=== PATIENT | female | born 1965 | race Caucasian/White ===

== ENCOUNTER 2017-04-03 10:08 | Inpatient (IN) | payer MEDICAID ==
[~2017-04-03] VITALS: Ht 154.9 cm; Wt 80.0 kg
[2017-04-03] MEDS ORDERED: SODIUM CHLORIDE 0.9% 500 ML IVB ONE (10:21)
[2017-04-03] MEDS ORDERED: MORPHINE SULFATE 4 MG/ML SYRG IV ONE (10:30)
[2017-04-03] MEDS ORDERED: ONDANSETRON HCL 4 MG/2 ML VIAL IV ONE (10:30)
[2017-04-03 11:24] LABS: Basophils # (auto) 0 uL; Basophils % (auto) 0.2 % (0.0-2.0); CONDITION Y; Eosinophils # (auto) 0 uL; Eosinophils % (auto) 0.4 % (0.0-7.0); Hematocrit 43.7 % (36.0-46.0); Hemoglobin 14.9 g/dL (12.2-16.2); Lymphocytes # (auto) 0.9 uL; Lymphocytes % (auto) 13.1 % (10.0-50.0); Mean Corpuscular Hemoglobin 29.6 pg (28.0-32.0); Mean Corpuscular Volume 87.3 fL (80.0-100.0); Mean Platelet Volume 8.1 fL (7.4-10.4); Monocytes # (auto) 0.2 uL; Monocytes % (auto) 3.2 % (0.0-12.0); Neutrophils # (auto) 5.9 uL; Neutrophils % (auto) 83.1 % (37.0-80.0); Platelet Count (auto) 233 10^3/uL (140-450); Red Cell Distribution Width 13.9 % (11.6-16.0); White Blood Cell 7.1 10^3/uL (4.4-10.8)
[2017-04-03 11:41] LABS: Albumin 3.8 g/dL (3.4-5.0); BUN/Creatinine Ratio 18.9; Bilirubin, Total 2.6 mg/dL (0.2-1.0); Calcium 11.1 mg/dL (8.5-10.1); Potassium 3.8 mmol/L (3.5-5.1); Total Protein 7.7 g/dL (6.4-8.2)
[2017-04-03] MEDS ORDERED: MORPHINE SULFATE 4 MG/ML SYRG IV PRN (12:15)
[2017-04-03] MEDS ORDERED: NITROGLYCERIN 0.4 MG SL TAB SL PRN (12:15)
[2017-04-03] MEDS ORDERED: LORazepam 2MG/ML-1ML VIAL IV PRN (12:15)
[2017-04-03] MEDS ORDERED: MORPHINE SULF INJ 2 MG/ML SYRINGE 1ML IV PRN ×2 (12:15)
[2017-04-03] MEDS ORDERED: DEXTROSE (50%) 50ML SYRG IV PRN (12:15)
[2017-04-03 12:30] LABS: Urine Blood Negative /uL (Negative); Urine Color Yellow (Yellow); Urine Glucose Normal (Normal); Urine Ketone Negative (Negative); Urine Nitrite Negative (Negative); Urine RBC 1 /hpf (0 - 4); Urine Squamous Epithelial Cell FEW /hpf (<5)
[2017-04-03 12:33] LABS: Urine Bilirubin Negative (Negative)
[2017-04-03] MEDS: LEVOFLOXACIN 500MG 100 ML IV SCH (13:07)
[2017-04-03] MEDS: SODIUM CHLORIDE 0.9% 1,000 ML IV SCH ×2 (13:07→18:53)
[2017-04-03] MEDS: metroNIDAZOLE 500MG/100ML 100 ML IV SCH ×2 (14:58→21:23)
[2017-04-03] MEDS: PROMETHAZINE HCL 25 MG/ML 1ML IV PRN (17:56)
[2017-04-03] MEDS: ACCU-CHEK COMFORT CURVE STRIP VI SCH (19:02)
[2017-04-03 20:30] VITALS: BP 137/62
[2017-04-03] MEDS: FAMOTIDINE (10MG/ML) 2ML VL IV SCH (21:24)
[2017-04-03 22:00] VITALS: BP 137/62
[2017-04-04] MEDS: PROMETHAZINE HCL 25 MG/ML 1ML IV PRN (00:49)
[2017-04-04] MEDS ORDERED: DOCU-94 PO (01:09)
[2017-04-04 05:00] VITALS: BP 141/78
[2017-04-04] MEDS: SODIUM CHLORIDE 0.9% 1,000 ML IV SCH ×3 (05:50→15:12)
[2017-04-04] MEDS: ACCU-CHEK COMFORT CURVE STRIP VI SCH ×4 (05:52→18:00)
[2017-04-04] MEDS: metroNIDAZOLE 500MG/100ML 100 ML IV SCH ×3 (05:52→21:23)
[2017-04-04 06:24] LABS: Basophils # (auto) 0 uL; Basophils % (auto) 0.3 % (0.0-2.0); CONDITION Y; Eosinophils # (auto) 0 uL; Eosinophils % (auto) 0.7 % (0.0-7.0); Hemoglobin 13.4 g/dL (12.2-16.2); Lymphocytes # (auto) 0.9 uL; Lymphocytes % (auto) 13.2 % (10.0-50.0); Mean Corpuscular Hemoglobin 29.5 pg (28.0-32.0); Mean Corpuscular Hgb Conc. 33.5 g/dL (32.0-36.0); Mean Corpuscular Volume 88.2 fL (80.0-100.0); Mean Platelet Volume 8.2 fL (7.4-10.4); Monocytes # (auto) 0.3 uL; Monocytes % (auto) 4.4 % (0.0-12.0); Neutrophils # (auto) 5.4 uL; Neutrophils % (auto) 81.4 % (37.0-80.0); Platelet Count (auto) 208 10^3/uL (140-450); Red Cell Distribution Width 14.1 % (11.6-16.0); White Blood Cell 6.6 10^3/uL (4.4-10.8)
[2017-04-04 06:44] LABS: INR 1.04 (0.9-1.15); Partial Thromboplastin Time 26.4 sec (22.64-33.71); Prothrombin Time 11.3 sec (9.37-12.3)
[2017-04-04 07:01] LABS: Albumin 3.1 g/dL (3.4-5.0); BUN/Creatinine Ratio 17.6; Bilirubin, Total 1.3 mg/dL (0.2-1.0); Calcium 10.6 mg/dL (8.5-10.1); Potassium 3.5 mmol/L (3.5-5.1); Total Protein 6.4 g/dL (6.4-8.2)
[2017-04-04 09:00] VITALS: BP 150/79
[2017-04-04] MEDS: FAMOTIDINE (10MG/ML) 2ML VL IV SCH ×2 (10:23→21:23)
[2017-04-04] MEDS: LEVOFLOXACIN 500MG 100 ML IV SCH (10:23)
[2017-04-04 13:00] VITALS: BP 148/76
[2017-04-04] MEDS: HYDROcodone-ACET 5/325MG TAB PO PRN (14:15)
[2017-04-04 17:00] VITALS: BP 110/63
[2017-04-04 22:00] VITALS: BP 129/68
[2017-04-05] MEDS: ACCU-CHEK COMFORT CURVE STRIP VI SCH ×4 (00:03→17:52)
[2017-04-05] MEDS: HYDROcodone-ACET 5/325MG TAB PO PRN ×4 (02:44→20:13)
[2017-04-05] MEDS: SODIUM CHLORIDE 0.9% 1,000 ML IV SCH ×4 (02:47→15:28)
[2017-04-05 05:00] VITALS: BP 117/65
[2017-04-05] MEDS: metroNIDAZOLE 500MG/100ML 100 ML IV SCH ×2 (05:25→14:15)
[2017-04-05 06:39] LABS: Basophils # (auto) 0 uL; Basophils % (auto) 0.2 % (0.0-2.0); CONDITION Y; Eosinophils # (auto) 0.1 uL; Eosinophils % (auto) 1.2 % (0.0-7.0); Hematocrit 37.4 % (36.0-46.0); Hemoglobin 12.6 g/dL (12.2-16.2); Lymphocytes # (auto) 1.5 uL; Lymphocytes % (auto) 19.2 % (10.0-50.0); Mean Corpuscular Hemoglobin 29.8 pg (28.0-32.0); Mean Corpuscular Hgb Conc. 33.8 g/dL (32.0-36.0); Mean Corpuscular Volume 88.1 fL (80.0-100.0); Mean Platelet Volume 7.9 fL (7.4-10.4); Monocytes # (auto) 0.4 uL; Monocytes % (auto) 5.6 % (0.0-12.0); Neutrophils # (auto) 5.7 uL; Neutrophils % (auto) 73.8 % (37.0-80.0); Platelet Count (auto) 200 10^3/uL (140-450); Red Cell Distribution Width 13.5 % (11.6-16.0); White Blood Cell 7.7 10^3/uL (4.4-10.8)
[2017-04-05 07:05] LABS: Albumin 2.8 g/dL (3.4-5.0); BUN/Creatinine Ratio 15.9; Bilirubin, Total 0.9 mg/dL (0.2-1.0); Calcium 10.3 mg/dL (8.5-10.1); Potassium 3.4 mmol/L (3.5-5.1)
[2017-04-05 07:49] VITALS: BP 137/75
[2017-04-05] MEDS: LEVOFLOXACIN 500MG 100 ML IV SCH (09:08)
[2017-04-05] MEDS: FAMOTIDINE (10MG/ML) 2ML VL IV SCH ×2 (09:08→22:00)
[2017-04-05 12:00] VITALS: BP 119/64
[2017-04-05] MEDS ORDERED: POTASSIUM CHL 20MEQ/100ML 100 ML IV ONE (15:15)
[2017-04-05 16:52] VITALS: BP 126/71
[2017-04-05 20:00] VITALS: BP 129/68
[2017-04-05 21:38] VITALS: BP 129/68
[2017-04-06] MEDS: ACCU-CHEK COMFORT CURVE STRIP VI SCH ×5 (00:12→23:16)
[2017-04-06] MEDS: SODIUM CHLORIDE 0.9% 1,000 ML IV SCH ×4 (00:13→23:17)
[2017-04-06] MEDS: HYDROcodone-ACET 5/325MG TAB PO PRN ×4 (03:13→21:08)
[2017-04-06 05:02] VITALS: BP 108/63
[2017-04-06 06:29] LABS: Calcium 9.7 mg/dL (8.5-10.1); Potassium 3.7 mmol/L (3.5-5.1)
[2017-04-06 06:31] LABS: BUN/Creatinine Ratio 11.9
[2017-04-06] MEDS: FAMOTIDINE (10MG/ML) 2ML VL IV SCH ×2 (08:53→21:08)
[2017-04-06 09:00] VITALS: BP 128/70
[2017-04-06 13:00] VITALS: BP 125/69
[2017-04-06 17:00] VITALS: BP 118/68
[2017-04-06 21:35] VITALS: BP 108/70
[2017-04-07 04:41] VITALS: BP 106/53
[2017-04-07] MEDS: HYDROcodone-ACET 5/325MG TAB PO PRN ×4 (05:03→20:47)
[2017-04-07] MEDS: ACCU-CHEK COMFORT CURVE STRIP VI SCH ×4 (06:12→23:02)
[2017-04-07 06:47] LABS: Amylase 131 U/L (25-115)
[2017-04-07 08:08] VITALS: BP 134/60
[2017-04-07] MEDS: FAMOTIDINE (10MG/ML) 2ML VL IV SCH (11:40)
[2017-04-07 12:54] VITALS: BP 130/69
[2017-04-07 17:17] VITALS: BP 121/78
[2017-04-07 21:30] VITALS: BP 129/71
[2017-04-07] MEDS: SODIUM CHLORIDE 0.9% 1,000 ML IV SCH (22:24)
[2017-04-08] MEDS: SODIUM CHLORIDE 0.9% 1,000 ML IV SCH (04:14)
[2017-04-08 05:00] VITALS: BP 108/70
[2017-04-08] MEDS: ACCU-CHEK COMFORT CURVE STRIP VI SCH ×2 (06:00→12:00)
[2017-04-08 09:00] VITALS: BP 133/52
[2017-04-08] MEDS ORDERED: FAMOTIDINE 20 MG TAB PO SCH (10:00)
[2017-04-08] MEDS ORDERED: IBUP800T24 PO (11:33)
[2017-04-08] MEDS ORDERED: FAM20T PO (11:33)
[2017-04-08 12:51] VITALS: BP 122/61
[2017-04-08 16:50] VITALS: BP 109/61
== END 2017-04-08 16:30 | disposition home or self-care (01) | DRG 282 ==
LOC: EDBD 10:08 → ER 10:08 → TELE 10:09 → TELE-CENTR 19:43 → CENTRAL 04-06 21:18
PROVIDERS: ADMIT Internal Medicine; ATTEND Hospitalist
DX: K85.90 Acute pancreatitis without necrosis or infection, unspecified (principal); E83.52 Hypercalcemia; F32.9 Major depressive disorder, single episode, unspecified; J45.909 Unspecified asthma, uncomplicated; K86.1 Other chronic pancreatitis; D35.02 Benign neoplasm of left adrenal gland; F41.9 Anxiety disorder, unspecified; K57.90 Diverticulosis of intestine, part unspecified, without perforation or abscess without bleeding; Z90.49 Acquired absence of other specified parts of digestive tract; Z98.51 Tubal ligation status; Z88.0 Allergy status to penicillin; Z88.2 Allergy status to sulfonamides; Z87.442 Personal history of urinary calculi
CPT/HCPCS: 36415; 74176; 74181; 76700; 80048; 80053; 80061; 81001; 81025; 82150; 82962; 83036; 83690; 83970; 85025; 85610; 85730; 93005; 94761; 96361; 96374; 96375; 96376; J1956; J2405; J3480; J3490

== ENCOUNTER 2024-02-26 14:39 | Emergency (ER) | payer MEDICAID ==
[~2024-02-26] VITALS: Ht 157.5 cm; Wt 81.8 kg
[~2024-02-26 14:39] MED LIST: DOCU-94 PO; FAMO20TA10 PO; IBUP-1455 PO
[2024-02-26 14:40] VITALS: BP 148/72
[2024-02-26 15:17] VITALS: PULSE 84; RESP 16; O2SAT 97
[2024-02-26] MEDS ORDERED: SODIUM CHLORIDE 0.9% 1,000 ML IV ONE (15:30)
[2024-02-26 16:40] LABS: Basophils # (auto) 0 10 ^3/uL (0-0.2); Basophils % (auto) 0.7 % (0.0-2.0); Eosinophils # (auto) 0.2 10 ^3/uL (0-0.8); Eosinophils % (auto) 2.3 % (0.0-7.0); Hematocrit 39.8 % (36.0-46.0); Hemoglobin 13.5 g/dL (12.2-16.2); Lymphocytes # (auto) 2.2 10 ^3/uL (0.4-5.4); Lymphocytes % (auto) 31.9 % (10.0-50.0); Mean Corpuscular Hemoglobin 29.1 pg (28.0-32.0); Mean Corpuscular Volume 85.6 fL (80.0-100.0); Monocytes # (auto) 0.4 10 ^3/uL (0-1.3); Monocytes % (auto) 5.9 % (0.0-12.0); Neutrophils % (auto) 59.2 % (37.0-80.0); Nucleated Red Blood Cells % 0.2 %; Red Blood Cells 4.65 10^6/uL (4.0-5.20); Red Cell Distribution Width 13.8 % (11.8-14.3); White Blood Cell 6.8 10^3/uL (4.4-10.8)
[2024-02-26 16:43] LABS: Chloride 104 mmol/L (98-107); Potassium 3.6 mmol/L (3.5-5.1); Sodium 134 mmol/L (136-145)
[2024-02-26 16:44] LABS: Anion Gap 9 (5-15); Calcium 12.3 mg/dL (8.5-10.1); Carbon Dioxide 21 mmol/L (20-30)
[2024-02-26 16:49] LABS: BUN/Creatinine Ratio 14.4 (10.0-20.0); Blood Urea Nitrogen 13 mg/dL (9-23); Glucose 368 mg/dL (74-106)
== END 2024-02-26 16:42 | disposition left against medical advice (07) ==
LOC: ER 14:39 → EDBD 14:39 → ER 16:42
DX: G90.9 Disorder of the autonomic nervous system, unspecified (principal); E11.9 Type 2 diabetes mellitus without complications; J45.909 Unspecified asthma, uncomplicated; Z86.2 Personal history of diseases of the blood and blood-forming organs and certain disorders involving the immune mechanism; Z98.890 Other specified postprocedural states; Z88.8 Allergy status to other drugs, medicaments and biological substances; Z79.899 Other long term (current) drug therapy
CPT/HCPCS: 36415; 80048; 84484; 85025; 93005